=== PATIENT | male | born 1940 | race Hispanic/Latino ===

== ENCOUNTER 2018-09-12 10:20 | Emergency (ER) | payer MEDICARE ==
[~2018-09-12] VITALS: Ht 172.7 cm; Wt 77.1 kg
[2018-09-12] MEDS ORDERED: ALBUTEROL/IPRATROPIUM 3 ML NEB NEB ONE (11:00)
--- NOTE | 2018-09-12 11:53 | NUR ---
REC'D PT IN RM 10 VIA W/C FROM RADIOLOGY FOR FLU-LIKE SYMPTOMS. PLACED ON THE MONITOR AND VITALS TAKEN. BED LOW/LOCKED AND CALL RUSSELL IN HAND. ABLE TO MAKE NEEDS KNOWN AND DENIES ANY PAIN/ OTHER NEEDS AT THIS TIME
--- NOTE | 2018-09-12 12:01 | Diagnostic Imaging Report ---
EXAMINATION: CHEST SINGLE (NOT PORTABLE) INDICATION: Cough. COMPARISON: None FINDINGS: TUBES and LINES: None. Overlying artifact in the thoracic inlet. LUNGS: Mild bibasilar subsegmental atelectasis. There is no evidence of pneumonia or pulmonary edema. PLEURA: No pleural effusion or pneumothorax. HEART AND MEDIASTINUM: The cardiomediastinal silhouette is unremarkable. BONES AND SOFT TISSUES: No acute osseous lesion. Soft tissues are unremarkable. UPPER ABDOMEN: No free air under the diaphragm. IMPRESSION: No acute thoracic abnormality. Signed by: Dr. Wei Way M.D. on 09/12/2018 11:58 AM
[2018-09-12 13:05] LABS: INFLUENZAE A&B ANTIGEN (RAPID) NEGATIVE (NEGATIVE); STREPTOCOCCUS GRP A ANTIGEN NEGATIVE (NEGATIVE)
== END 2018-09-12 14:20 | disposition home or self-care (01) ==
LOC: ER 10:20
DX: R05 Cough (principal); R07.89 Other chest pain; J06.9 Acute upper respiratory infection, unspecified; E11.9 Type 2 diabetes mellitus without complications
CPT/HCPCS: 71045; 83518; 87070; 87400; 99284

== ENCOUNTER 2023-01-11 13:01 | Emergency (ER) | payer MEDICARE, OTHER ==
[~2023-01-11] VITALS: Ht 172.7 cm; Wt 77.1 kg
[~2023-01-11 13:01] MED LIST: ATROPINE SULFATE 0.1 MG/ML 10ML SYR ONE; CALCIUM CHLORIDE 10% 1.36 MEQ/ML 10ML SYR IV ONE; DEXTROSE 50% SYRINGE 50 ML IV ONE; DIGOXIN INJ 0.25 MG/ML 2 ML AMP ONE; EPINEPHRINE HCL SYRINGE ONE; SODIUM BICARBONATE 8.4% INJ 50 ML SYR ONE; SODIUM CHLORIDE FLUSH 10 ML SYR ONE
[2023-01-11 14:06] LABS: BASOPHILS # (AUTO) 0.1 (0.0-0.1); BASOPHILS % 0.6 % (0.0-1.0); EOSINOPHILS % 0.1 % (0.0-6.0); HEMOGLOBIN 14.2 g/dL (14.0-18.0); LYMPHOCYTES # (AUTO) 0.8 (1.0-3.2); MEAN CORPUSCULAR HEMOGLOBIN 30.5 pg (28-32); MEAN CORPUSCULAR HGB CONC 34.6 g/dL (31-35); MEAN CORPUSCULAR VOLUME 88.2 fL (81-99); MONOCYTES # (AUTO) 0.6 (0.2-0.8); MONOCYTES % 2.9 % (4.4-11.3); NEUTROPHILS # (AUTO) 17.1 (2.1-6.9); PLATELET COUNT 91 x10e3/uL (140-360); RED BLOOD COUNT 4.65 x10e6/uL (4.3-5.7); RED CELL DISTRIBUTION WIDTH 13.3 % (11.7-14.4)
[2023-01-11 14:34] LABS: ALBUMIN/GLOBULIN RATIO 0.9 (0.8-2.0); ANION GAP 18.1 mmol/L (8-16); CALCIUM 8.6 mg/dL (8.4-10.2); CREATININE, SERUM 1.23 mg/dL (0.72-1.25); POTASSIUM 4.1 mmol/L (3.5-5.1)
[2023-01-11 14:56] LABS: CLARITY,URINE CLOUDY (CLEAR); COLOR,URINE ORANGE (YELLOW); KETONES,URINE 1+ (NEGATIVE); LEUKOCYTE ESTERASE ,URINE NEGATIVE (NEGATIVE); NITRITE,URINE NEGATIVE (NEGATIVE); PROTEIN,URINE DIPSTICK >=300 (NEGATIVE); URINE UROBILINOGEN 1 mg/dL (0.2 - 1)
[2023-01-11 15:07] LABS: BACTERIA,URINE MANY /HPF
[2023-01-11 15:08] LABS: EPITHELIAL CELLS,URINE FEW /LPF; TRANSITIONAL EPI CELLS,URINE FEW
[2023-01-11] MEDS ORDERED: CEFDINIR300 MG PO (15:14)
[2023-01-11 15:59] VITALS: BP 157/60
== END 2023-01-11 15:58 | disposition home or self-care (01) ==
LOC: ER 13:46
DX: R50.9 Fever, unspecified (principal); N39.0 Urinary tract infection, site not specified; E11.65 Type 2 diabetes mellitus with hyperglycemia; I10 Essential (primary) hypertension; Z20.822 Contact with and (suspected) exposure to COVID-19; R94.31 Abnormal electrocardiogram [ECG] [EKG]
CPT/HCPCS: 36415; 70450; 71045; 80053; 81001; 83880; 84484; 85025; 93005; 99284; J0171; J0696; J1160; J7030; J7799; U0002